=== PATIENT | female | born 1985 | race Caucasian/White ===

== ENCOUNTER 2016-07-17 07:49 | Emergency (ER) | payer BC ==
[~2016-07-17] VITALS: Ht 154.9 cm; Wt 80.5 kg
[2016-07-17 07:50] VITALS: BP 120/78; PULSE 78; RESP 17; TEMP 98.3; O2SAT 98
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
== END 2016-07-17 08:45 | disposition home or self-care (01) ==
LOC: PHED 07:49
DX: N76.4 Abscess of vulva (principal); B34.9 Viral infection, unspecified; Z87.891 Personal history of nicotine dependence
CPT/HCPCS: 99282

== ENCOUNTER 2016-09-05 18:39 | Emergency (ER) | payer SELFPAY ==
[2016-09-05 18:40] VITALS: BP 127/74; PULSE 77; RESP 18; TEMP 99.7; O2SAT 100
== END 2016-09-05 21:39 | disposition left against medical advice (07) ==
LOC: NED 18:39
DX: R07.9 Chest pain, unspecified (principal); Z53.21 Procedure and treatment not carried out due to patient leaving prior to being seen by health care provider
CPT/HCPCS: 99281

== ENCOUNTER 2016-09-05 19:29 | Emergency (ER) | payer SELFPAY ==
[~2016-09-05] VITALS: Ht 154.9 cm; Wt 77.0 kg
[2016-09-05 19:41] VITALS: BP 125/88; PULSE 75; RESP 20; TEMP 98.4; O2SAT 100
--- NOTE | 2016-09-05 20:13 | PD ---
HPI Chief Complaint: Chest Pain Time Seen by Provider: 19:45 Travel History International Travel<30 days: No Contact w/Intl Traveler<30days: No Traveled to known affect area: No History of Present Illness HPI This 30-year-old female is complaining of substernal chest pain. She says the pain started this afternoon while she was at work. 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 The pain is substernal. It is aggravated by deep breathing and also by palpation. She does not recall having this kind of pain before. She stopped smoking a half ago. She has no history of diabetes or high blood pressure. She says is no chance of . She stopped smoking a year and a half ago. Her mother has some kind of heart trouble and also has a history of pulmonary embolus. Patient's pain now is less than it was previously. She was short of breath when the pain was more severe. PFSH Past Medical History Diminished Hearing: No Immunizations Current: Yes ?: Not LMP: 08/13/16 Past Surgical History Other Surgery: Yes (RIGHT INGUINAL HERNIA REPAIR) Social History Alcohol Use: Yes (RARE) Tobacco Use: No (FORMER) Substance Use: No Allergies-Medications (Allergen,Severity, Reaction): Coded Allergies: No Known Allergies (Unverified , 09/05/16) Reported Meds & Prescriptions Reported Meds & Active Scripts Active No Active Prescriptions or Reported Medications Review of Systems General / Constitutional: No: Fever, Chills Eyes: No: Diploplia, Blurred Vision HENT: No: Headaches, Vertigo Cardiovascular: Positive: Chest Pain or Discomfort, No: Palpitations, Irregular Rhythm Respiratory: No: Cough Gastrointestinal: No: Nausea, Vomiting Genitourinary: No: Urgency, Frequency Physical Exam Narrative GENERAL: Well-developed female SKIN: Focused skin assessment warm/dry. HEAD: Atraumatic. Normocephalic. EYES: Pupils equal and round. No scleral icterus. No injection or drainage. ENT: No nasal bleeding or discharge. Mucous membranes pink and moist. NECK: Trachea midline. No JVD. CARDIOVASCULAR: Regular rate and rhythm. No murmur appreciated. There is some tenderness over the sternum RESPIRATORY: No accessory muscle use. Clear to auscultation. Breath sounds equal bilaterally. GASTROINTESTINAL: Abdomen soft, non-tender, nondistended. Hepatic and splenic margins not palpable. MUSCULOSKELETAL: No obvious deformities. No clubbing. No cyanosis. No edema. NEUROLOGICAL: Awake and alert. No obvious cranial nerve deficits. Motor grossly within normal limits. Normal speech. PSYCHIATRIC: Appropriate mood and affect; insight and judgment normal. Data Data Last Documented VS Vital Signs Date Time Temp Pulse Resp B/P Pulse Ox O2 Delivery O2 Flow Rate FiO2 09/05/16 19:57 71 20 99 Room Air 09/05/16 19:41 98.4 125/88 Orders Complete Blood Count With Diff (09/05/16 20:11) Basic Metabolic Panel (Bmp) (09/05/16 20:11) Troponin I (09/05/16 20:11) D-Dimer (09/05/16 20:11) Ketorolac Inj (Toradol Inj) (09/05/16 20:30) Electrocardiogram (09/05/16 20:05) Labs Laboratory Tests Test 09/05/16 20:12 White Blood Count 5.9 TH/MM3 Red Blood Count 4.36 MIL/MM3 Hemoglobin 12.9 GM/DL Hematocrit 37.3 % Mean Corpuscular Volume 85.7 FL Mean Corpuscular Hemoglobin 29.5 PG Mean Corpuscular Hemoglobin 34.4 % Concent Red Cell Distribution Width 12.5 % Platelet Count 281 TH/MM3 Mean Platelet Volume 7.9 FL Neutrophils (%) (Auto) 61.7 % Lymphocytes (%) (Auto) 25.8 % Monocytes (%) (Auto) 9.1 % Eosinophils (%) (Auto) 2.9 % Basophils (%) (Auto) 0.5 % Neutrophils # (Auto) 3.6 TH/MM3 Lymphocytes # (Auto) 1.5 TH/MM3 Monocytes # (Auto) 0.5 TH/MM3 Eosinophils # (Auto) 0.2 TH/MM3 Basophils # (Auto) 0.0 TH/MM3 CBC Comment DIFF FINAL Differential Comment D-Dimer Quantitative (PE/DVT) 0.38 MG/L FEU Sodium Level 140 MEQ/L Potassium Level 3.7 MEQ/L Chloride Level 108 MEQ/L Carbon Dioxide Level 24.7 MEQ/L Anion Gap 7 MEQ/L Blood Urea Nitrogen 13 MG/DL Creatinine 0.71 MG/DL Estimat Glomerular Filtration 95 ML/MIN Rate Random Glucose 81 MG/DL Calcium Level 8.8 MG/DL Troponin I LESS THAN 0.02 NG/ML MDM Medical Decision Making Medical Screen Exam Complete: Yes Emergency Medical Condition: Yes Medical Record Reviewed: Yes Differential Diagnosis Differential includes chest wall pain, atypical chest pain, coronary artery disease, pulmonary embolus Narrative Course EKG shows normal sinus rhythm. Troponin is normal. D-dimer is normal. Impression is atypical chest pain. Patient is stable for discharge Diagnosis Primary Impression: Atypical chest pain Scripts No Active Prescriptions or Reported Meds Disposition: 01 DISCHARGE HOME Condition: Stable Gerson Pittman MD Sep 05, 2016 20:13
[2016-09-05 20:30] LABS: AUTOMATED NEUTROPHIL # 3.6 TH/MM3 (1.8-7.7); BASOPHIL % 0.5 % (0.0-2.0); EOSINOPHIL # 0.2 TH/MM3 (0-0.4); EOSINOPHIL % 2.9 % (0.0-4.0); HEMATOCRIT 37.3 % (35.0-46.0); HEMO FLAGS DIFF FINAL; LYMPH % 25.8 % (9.0-44.0); LYMPHOCYTE # 1.5 TH/MM3 (1.0-4.8); MEAN CELL VOLUME 85.7 FL (80.0-100.0); MEAN CORPUSCULAR HEMOGLOBIN 29.5 PG (27.0-34.0); MEAN CORPUSCULAR HGB CONC 34.4 % (32.0-36.0); MONO % 9.1 % (0.0-8.0); NEUT % 61.7 % (16.0-70.0); PLATELET COUNT 281 TH/MM3 (150-450); RED BLOOD COUNT 4.36 MIL/MM3 (4.00-5.30); RED CELL DISTRIBUTION WIDTH 12.5 % (11.6-17.2); WHITE BLOOD COUNT 5.9 TH/MM3 (4.0-11.0)
[2016-09-05] MEDS ORDERED: KETOROLAC TROMETHAMINE 30 MG/ML (IVP) VIAL IV PUSH ONE (20:30)
[2016-09-05 20:37] LABS: CHLORIDE 108 MEQ/L (98-107); POTASSIUM 3.7 MEQ/L (3.5-5.1); SODIUM (NA) 140 MEQ/L (136-145)
[2016-09-05 20:40] LABS: ANION GAP 7 MEQ/L (5-15); BICARBONATE 24.7 MEQ/L (21.0-32.0); BLOOD UREA NITROGEN 13 MG/DL (7-18)
[2016-09-05 20:43] LABS: GLOMERULAR FILTRATION RATE 95 ML/MIN (>89)
[2016-09-05 21:34] VITALS: RESP 18
[2016-09-05 21:50] VITALS: BP 123/66
--- NOTE | 2016-09-07 11:01 | EKG ---
Date Performed: 09/05/2016 Time Performed: 20:05:40 PTAGE: 30 years EKG: Sinus rhythm WITH SINUS ARRHYTHMIA POSSIBLE RIGHT VENTRICULAR CONDUCTION DELAY BORDERLINE ECG NO PREVIOUS TRACING DOCTOR: Dallin Carmen Interpretating Date/Time 09/07/2016 10:55:43
== END 2016-09-05 22:01 | disposition home or self-care (01) ==
LOC: PHED 19:29
DX: R07.89 Other chest pain (principal); R06.02 Shortness of breath; Z87.891 Personal history of nicotine dependence
CPT/HCPCS: 80048; 84484; 85025; 85379; 93005; 96374; 99284; J1885

== ENCOUNTER 2016-09-13 06:23 | Emergency (ER) | payer SELFPAY ==
[~2016-09-13] VITALS: Ht 154.9 cm; Wt 78.0 kg
[2016-09-13 06:25] VITALS: BP 128/79; PULSE 73; RESP 16; TEMP 97.8; O2SAT 97
[2016-09-13] MEDS ORDERED: PROCHLORPERAZINE INJ 10 MG/2 ML VIAL IVP ONE (07:00)
[2016-09-13] MEDS ORDERED: diphenhydrAMINE HCL 50 MG/ML VIAL IVP ONE (07:00)
[2016-09-13] MEDS ORDERED: SODIUM CHLORIDE 0.9% FLUSH 10 ML FLUSH IVF PRN (07:00)
[2016-09-13] MEDS ORDERED: BUTA1CAP PO (07:21)
--- NOTE | 2016-09-13 07:22 | PD ---
HPI . Headache Chief Complaint: Headache Time Seen by Provider: 07:00 Travel History International Travel<30 days: No Contact w/Intl Traveler<30days: No Traveled to known affect area: No History of Present Illness HPI Patient presents with the chief complaint of a headache. Onset yesterday. It is a right-sided headache that she describes as throbbing. She rates the pain as 8/10. He has been unrelieved by Benadryl. She has not noted any exacerbating factor. It is associated with some nausea. It is also associated with 3 "lumps" on the right side of her head. Patient reports positive previous similar history. PFSH Past Medical History Diminished Hearing: No Immunizations Current: Yes Migraines: Yes ?: Not LMP: 09/09/16 : 2 Para: 2 Past Surgical History Other Surgery: Yes (RIGHT INGUINAL HERNIA REPAIR) Social History Alcohol Use: Yes Tobacco Use: No (QUIT 2014) Substance Use: No Allergies-Medications (Allergen,Severity, Reaction): Coded Allergies: No Known Allergies (Unverified , 09/13/16) Reported Meds & Prescriptions Reported Meds & Active Scripts Active Fioricet (Dktbxisftk-Ureulofvfvyqn-Bsnrnlzg) 50-300-40 Mg Cap 1 Cap PO Q4H PRN Review of Systems Except as stated in HPI: all other systems reviewed are Neg General / Constitutional: No: Fever, Chills Eyes: No: Blurred Vision HENT: Positive: Headaches, No: Lightheadedness Gastrointestinal: Positive: Nausea, No: Vomiting Neurologic: Positive: Headache, No: Weakness, Dizziness, Focal Abnormalities, Change in Mentation, Slurred Speech, Paresthesia, Incontinence Physical Exam Narrative GENERAL: Awake and alert and in no acute distress. SKIN: Warm and dry. HEAD: Atraumatic. Normocephalic. I am able to palpate 1 nodule on the right side of her scalp. It is tender. EYES: Pupils equal and round. Extraocular movements are intact. NECK: Trachea midline. Neck is supple. CARDIOVASCULAR: Regular rate and rhythm. RESPIRATORY: No accessory muscle use. MUSCULOSKELETAL: No obvious deformities. No edema. NEUROLOGICAL: Awake and alert. No obvious cranial nerve deficits. Motor grossly within normal limits. Normal speech. Tfzptu-rhoa-okizgk exam is intact. PSYCHIATRIC: Appropriate mood and affect; insight and judgment normal. Data Data Last Documented VS Vital Signs Date Time Temp Pulse Resp B/P Pulse Ox O2 Delivery O2 Flow Rate FiO2 09/13/16 07:35 80 18 117/68 100 Room Air 09/13/16 06:[address] Brain W/O Iv Contrast(Rout) (09/13/16 07:00) Iv Access Insert/Monitor (09/13/16 07:00) Sodium Chloride 0.9% Flush (Ns Flush) (09/13/16 07:00) Prochlorperazine Inj (Compazine Inj) (09/13/16 07:00) Diphenhydramine Inj (Benadryl Inj) (09/13/16 07:00) MDM Medical Decision Making Medical Screen Exam Complete: Yes Emergency Medical Condition: Yes Differential Diagnosis Differential diagnosis of headache includes but is not limited to migraine, muscle contraction headache, brain tumor, brain bleed Narrative Course This patient presents with the chief complaint of a headache. She is very concerned that there is something going on inside of her head. I have ordered a CT of her head. Her pain is being treated with Compazine and Benadryl. Last Impressions Head CT 09/13/16 0700 Signed Impressions: Service Date/Time: Tuesday, September 13, 2016 07:17 - CONCLUSION: No acute disease. Shaheed Mahajan MD Patient has had a dyskinetic reaction to the Compazine. The patient is now feeling much better and ready to go home. She reports her headache is resolved. 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
--- NOTE | 2016-09-13 07:33 | RADRPT ---
EXAM DATE/TIME: 09/13/2016 07:17 [facility] COMPARISON: No previous studies available for comparison. INDICATIONS : Cephalgia since last night. RADIATION DOSE: 32.99 CTDIvol (mGy) MEDICAL HISTORY : None SURGICAL HISTORY : None. ENCOUNTER: Initial ACUITY: 1 day PAIN SCALE: 10/10 LOCATION: cranial TECHNIQUE: Multiple contiguous axial images were obtained of the head. Using automated exposure control and adj ustment of the mA and/or kV according to patient size, radiation dose was kept as low as reasonably a chievable to obtain optimal diagnostic quality images. DICOM format image data is available electro nically for review and comparison. FINDINGS: CEREBRUM: The ventricles are normal for age. No evidence of midline shift, mass lesion, hemorrhage or acute in farction. No extra-axial fluid collections are seen. POSTERIOR FOSSA: The cerebellum and brainstem are intact. The 4th ventricle is midline. The cerebellopontine angle i s unremarkable. EXTRACRANIAL: The visualized portion of the orbits is intact. SKULL: The calvaria is intact. No evidence of skull fracture. CONCLUSION: No acute disease. Shaheed Mahajan MD on September 13, 2016 at 7:31 Board Certified Radiologist. This report was verified electronically.
[2016-09-13 07:35] VITALS: BP 117/68; PULSE 80; RESP 18; O2SAT 100
[2016-09-13 08:30] VITALS: BP 107/55
== END 2016-09-13 09:30 | disposition home or self-care (01) ==
LOC: NEPE 06:23
DX: G44.039 Episodic paroxysmal hemicrania, not intractable (principal); G24.9 Dystonia, unspecified
CPT/HCPCS: 70450; 96374; 96375; 99285; J0780; J1200

== ENCOUNTER 2016-10-13 12:27 | Emergency (ER) | payer SELFPAY ==
[~2016-10-13 12:27] MED LIST: BUTA1CAP PO
[2016-10-13] MEDS ORDERED: PROCHLORPERAZINE INJ 10 MG/2 ML VIAL IM ONE (13:00)
--- NOTE | 2016-10-13 13:00 | PD ---
HPI . requesting refills on fioricet Chief Complaint: requesting refills Time Seen by Provider: 12:59 Travel History International Travel<30 days: No Contact w/Intl Traveler<30days: No Traveled to known affect area: No History of Present Illness HPI 31 yr old female here requesting refill on Fioricet. She tells me she does not have a PCP and was hoping we could fill her meds. She tells me she called the ED first to see if we would fill her med and was told to come in to discuss with us. She tells me she likes holistic therapies and has tried epson salt bath with relief at home. She is wanting refill on fioricet as it also helps. Vitals: Temp 98.1; HR 97, RR 15; BP 137/64; 98% 02 PFSH Past Medical History Diminished Hearing: No Immunizations Current: Yes Migraines: Yes : 2 Para: 2 Past Surgical History Other Surgery: Yes (RIGHT INGUINAL HERNIA REPAIR) Social History Alcohol Use: Yes Tobacco Use: No (QUIT 2014) Substance Use: No Allergies-Medications (Allergen,Severity, Reaction): Coded Allergies: No Known Allergies (Unverified , 09/13/16) Reported Meds & Prescriptions Reported Meds & Active Scripts Active Fioricet (Utbdqfahor-Rqduyplaczmlg-Twpgajvw) 50-300-40 Mg Cap 1 Cap PO Q4H PRN Review of Systems General / Constitutional: No: Fever Eyes: No: Visual changes HENT: No: Headaches Cardiovascular: No: Chest Pain or Discomfort Respiratory: No: Shortness of Breath Gastrointestinal: No: Abdominal Pain Genitourinary: No: Dysuria Musculoskeletal: No: Pain Skin: No Rash Neurologic: Positive: Headache (chronic), No: Weakness Psychiatric: No: Depression Endocrine: No: Polydipsia Hematologic/Lymphatic: No: Easy Bruising Physical Exam Narrative GENERAL: AAO x 3, no acute distress, Well-nourished, well-developed patient. comfortable SKIN: Warm and dry. No visible rashes or bruising. HEAD: Normocephalic and atraumatic. EYES: No scleral icterus. No injection or drainage. EOM intact, PERRLA ENT: No nasal drainage noted. Mucous membranes pink. Airway patent. TM with light cerumen b/l NECK: Supple, trachea midline. No JVD. CARDIOVASCULAR: Regular rate and rhythm without murmurs, gallops, or rubs. RESPIRATORY: Breath sounds equal bilaterally. No accessory muscle use. No rhonchi or rales. GASTROINTESTINAL: visual inspection normal EXTREMITIES: No cyanosis or edema. BACK: Nontender without obvious deformity. No CVA tenderness. NEURO: CN II-12 intact, PSYCH: AAO x 3, normal affect. Data Data Orders Orders Prochlorperazine Inj (Compazine Inj) (10/13/16 13:00) [facility] Medical Decision Making Medical Screen Exam Complete: Yes Emergency Medical Condition: Yes Medical Record Reviewed: Yes Differential Diagnosis medication refills, chronic migraines, tension headache Narrative Course 31 yr old female here initially requesting refill on fioricet. When I discussed our refill policy, patient's significant other then says that he wants to start over and her to get treated for her headaches and have me issue a prescription upon her discharge. I discussed that this was not something I would do. I advised her she currently has a headache that we will go ahead and give her some Compazine. This headache is similar to her regular migraines. There is no change. She has agreed to this medication. I advised follow-up with outpatient primary care provider or [facility]. Diagnosis Primary Impression: Chronic migraine Referrals: [facility] Additional Instructions: Please return to emergency department if your symptoms return or worsen. Follow up with your primary care provider. As we discussed, you'll need to obtain refills from his primary care provider. Med/Other Pt SpecificInfo: No Change to Meds Disposition: 01 DISCHARGE HOME Condition: Stable Savannah Bates Oct 13, 2016 13:00
== END 2016-10-13 13:24 | disposition home or self-care (01) ==
LOC: NEPD 12:27
DX: G43.909 Migraine, unspecified, not intractable, without status migrainosus (principal)
CPT/HCPCS: 96372; 99284; J0780

== ENCOUNTER 2016-11-06 19:12 | Emergency (ER) | payer SELFPAY ==
[~2016-11-06] VITALS: Ht 154.9 cm; Wt 79.8 kg
[2016-11-06 19:22] VITALS: BP 122/73; PULSE 72; RESP 16; TEMP 98.7; O2SAT 100
[2016-11-06] MEDS ORDERED: IBUP-232 PO (19:52)
[2016-11-06] MEDS ORDERED: ULTR50TA5 PO (19:52)
[2016-11-06] MEDS ORDERED: PENI500T PO (19:52)
--- NOTE | 2016-11-06 19:52 | PD ---
HPI Chief Complaint: Oral / Dental Pain or Problem Time Seen by Provider: 19:47 Travel History International Travel<30 days: No Contact w/Intl Traveler<30days: No Traveled to known affect area: No History of Present Illness HPI 31-year-old female complains of right chest jaw pain right ear pain and right side of her neck pain. Patient states that the pain started yesterday. Patient states that she had intermittent dental pain for the past few months. Patient states that the pain usually resolved after she took antibiotic. Patient states the pain is sharp pain started the right upper and right low jaw area with radiation to the right ear right upper neck area. Patient denies any fever chills. Patient denies any chance of being . PFSH Past Medical History Diminished Hearing: No Immunizations Current: Yes Migraines: Yes Influenza Vaccination: No ?: Not LMP: nov 04 : 2 Para: 2 Past Surgical History Other Surgery: Yes (RIGHT INGUINAL HERNIA REPAIR) Social History Alcohol Use: Yes Tobacco Use: No (QUIT 2014) Substance Use: No Allergies-Medications (Allergen,Severity, Reaction): Coded Allergies: No Known Allergies (Unverified , 11/06/16) Reported Meds & Prescriptions Reported Meds & Active Scripts Active Review of Systems General / Constitutional: No: Fever Eyes: No: Visual changes HENT: No: Headaches Cardiovascular: No: Chest Pain or Discomfort Respiratory: No: Shortness of Breath Gastrointestinal: No: Abdominal Pain Genitourinary: No: Dysuria Musculoskeletal: No: Pain Skin: No Rash Neurologic: No: Weakness Psychiatric: No: Depression Endocrine: No: Polydipsia Hematologic/Lymphatic: No: Easy Bruising Physical Exam Narrative GENERAL: Well-nourished, well-developed patient. SKIN: Focused skin assessment warm/dry. HEAD: Normocephalic. EYES: No scleral icterus. No injection or drainage. Right ear canal with cerumen impaction. Patient has mild tenderness on palpation right upper gum right lower gum area. No soft tissue swelling noted. NECK: Supple, trachea midline. No JVD or lymphadenopathy. No meningismus CARDIOVASCULAR: Regular rate and rhythm without murmurs, gallops, or rubs. RESPIRATORY: Breath sounds equal bilaterally. No accessory muscle use. GASTROINTESTINAL: Abdomen soft, non-tender, nondistended. MUSCULOSKELETAL: No cyanosis, or edema. BACK: Nontender without obvious deformity. No CVA tenderness. Data Data Last Documented VS Vital Signs Date Time Temp Pulse Resp B/P (MAP) Pulse Ox O2 Delivery O2 Flow Rate FiO2 11/06/16 19:22 98.7 72 16 122/73 (89) 100 MDM Medical Decision Making Medical Screen Exam Complete: Yes Emergency Medical Condition: Yes Differential Diagnosis Differential diagnosis including dental pain, dental abscess. Narrative Course 31-year-old male with dental pain. Diagnosis Primary Impression: Pain, dental Patient Instructions: General Instructions Additional Instructions: Take medication as directed. Follow-up with a dentist. Med/Other Pt SpecificInfo: Prescription(s) given Scripts Tramadol (Ultram) 50 Mg Tab 50 MG PO Q6H Y for PAIN, #20 TAB 0 Refills Prov: Frenando Hook MD 11/06/16 Ibuprofen (Ibuprofen) 600 Mg Tab 600 MG PO TID for Arthritis Pain, #60 TAB 0 Refills Prov: Fernando Hook MD 11/06/16 Penicillin V Potassium (Penicillin V Potassium) 500 Mg Tab 500 MG PO Q6H for Infection, #40 TAB 0 Refills Prov: Fernando Hook MD 11/06/16 Disposition: 01 DISCHARGE HOME Condition: Stable Fernando Hook MD Nov 06, 2016 19:52
== END 2016-11-06 20:00 | disposition home or self-care (01) ==
LOC: PHEFT 19:12
DX: K08.89 Other specified disorders of teeth and supporting structures (principal); M54.2 Cervicalgia; H92.01 Otalgia, right ear; Z86.69 Personal history of other diseases of the nervous system and sense organs
CPT/HCPCS: 99284

== ENCOUNTER 2016-11-07 18:33 | Emergency (ER) | payer SELFPAY ==
[~2016-11-07 18:33] MED LIST changes: -BUTA1CAP PO; +IBUP-232 PO; +PENI500T PO; +ULTR50TA5 PO
[2016-11-07 18:48] VITALS: BP 121/76; PULSE 78; RESP 20; TEMP 99.1; O2SAT 99
[2016-11-08] MEDS ORDERED: PROM25TA10 PO (10:30)
[2016-11-08] MEDS ORDERED: ZANT300T PO (10:30)
[2016-11-08] MEDS ORDERED: CIPR-9 PO (10:30)
[2016-11-08] MEDS ORDERED: MOBI15TA PO (10:30)
== END 2016-11-07 19:53 | disposition left against medical advice (07) ==
LOC: PHED 18:33
DX: R11.10 Vomiting, unspecified (principal)
CPT/HCPCS: 99281

== ENCOUNTER 2016-11-08 08:46 | Emergency (ER) | payer SELFPAY ==
[~2016-11-08] VITALS: Ht 154.9 cm; Wt 80.0 kg
[2016-11-08 08:48] VITALS: BP 116/70; PULSE 85; RESP 19; TEMP 98.5; O2SAT 97
[2016-11-08] MEDS ORDERED: MOBI15TA PO (10:30)
[2016-11-08] MEDS ORDERED: CIPR-9 PO (10:30)
[2016-11-08] MEDS ORDERED: PROM25TA10 PO (10:30)
[2016-11-08] MEDS ORDERED: ZANT300T PO (10:30)
--- NOTE | 2016-11-08 10:30 | PD ---
HPI Chief Complaint: Abdominal Pain Time Seen by Provider: 09:26 Travel History International Travel<30 days: No Contact w/Intl Traveler<30days: No Traveled to known affect area: No History of Present Illness HPI 31-year-old female complains of nausea vomiting, dental pain. Patient was seen in the emergency room 2 days ago for dental pain. Patient was given prescription for penicillin, ibuprofen and tramadol. Patient states that she has intermittent nausea vomiting with the medication. Patient states that she took tramadol and penicillin before without any problem. Patient denies any headache. Patient denies any coughing congestion. Patient denies any chest pain or shortness of breath. Patient states that she has some mild cramping around the epigastric area. Patient denies any dysuria or frequency. Patient denies any fever chills. PFSH Past Medical History Diminished Hearing: No Immunizations Current: Yes Migraines: Yes ?: Not : 2 Para: 2 Past Surgical History Other Surgery: Yes (RIGHT INGUINAL HERNIA REPAIR) Social History Alcohol Use: Yes Tobacco Use: No (QUIT 2014) Substance Use: No Allergies-Medications (Allergen,Severity, Reaction): Coded Allergies: No Known Allergies (Unverified , 11/08/16) Reported Meds & Prescriptions Reported Meds & Active Scripts Active Ultram (Tramadol HCl) 50 Mg Tab 50 Mg PO Q6H PRN Ibuprofen 600 Mg Tab 600 Mg PO TID Penicillin V Potassium 500 Mg Tab 500 Mg PO Q6H Review of Systems General / Constitutional: No: Fever Eyes: No: Visual changes HENT: No: Headaches Cardiovascular: No: Chest Pain or Discomfort Respiratory: No: Shortness of Breath Gastrointestinal: Positive: Nausea, Vomiting, No: Abdominal Pain Genitourinary: No: Dysuria Musculoskeletal: No: Pain Skin: No Rash Neurologic: No: Weakness Psychiatric: No: Depression Endocrine: No: Polydipsia Hematologic/Lymphatic: No: Easy Bruising Physical Exam Narrative GENERAL: Well-nourished, well-developed patient. SKIN: Focused skin assessment warm/dry. HEAD: Normocephalic. EYES: No scleral icterus. No injection or drainage. NECK: Supple, trachea midline. No JVD or lymphadenopathy. CARDIOVASCULAR: Regular rate and rhythm without murmurs, gallops, or rubs. RESPIRATORY: Breath sounds equal bilaterally. No accessory muscle use. GASTROINTESTINAL: Abdomen soft, nondistended. Patient has mild tenderness on palpation epigastric area. No rebound tenderness. No mass. MUSCULOSKELETAL: No cyanosis, or edema. BACK: Nontender without obvious deformity. No CVA tenderness. Data Data Last Documented VS Vital Signs Date Time Temp Pulse Resp B/P (MAP) Pulse Ox O2 Delivery O2 Flow Rate FiO2 11/08/16 08:48 98.5 85 19 116/70 (85) 97 Room Air MDM Medical Decision Making Medical Screen Exam Complete: Yes Emergency Medical Condition: Yes Differential Diagnosis Differential diagnosis including dental pain, dental abscess, gastroenteritis, side effect to medication. Narrative Course 31-year-old female with dental pain, abdominal cramping, nausea vomiting. Diagnosis Primary Impression: Gastroenteritis Additional Impression: Pain, dental Patient Instructions: General Instructions Additional Instructions: Stop penicillin, tramadol, ibuprofen. Take medications as prescribed. Follow- up with local physician and dentist. Med/Other Pt SpecificInfo: Prescription(s) given Scripts Ranitidine (Zantac) 300 Mg Tab 300 MG PO DAILY, #14 TAB 0 Refills Prov: Fernando Hook MD 11/08/16 Promethazine (Phenergan) 25 Mg Tablet 25 MG PO Q6H Y for NAUSEA OR VOMITING, #10 TAB 0 Refills Prov: Fernando Hook MD 11/08/16 Meloxicam (Mobic) 15 Mg Tab 15 MG PO DAILY for Pain, #10 TAB 0 Refills Prov: Fernando Hook MD 11/08/16 Ciprofloxacin (Cipro) 500 Mg Tab 500 MG PO BID for Infection, #14 TAB 0 Refills Prov: Fernando Hook MD 11/08/16 Disposition: 01 DISCHARGE HOME Condition: Stable Fernando Hook MD Nov 08, 2016 10:30
== END 2016-11-08 10:43 | disposition home or self-care (01) ==
LOC: NEPD 08:46
DX: K52.9 Noninfective gastroenteritis and colitis, unspecified (principal)
CPT/HCPCS: 99284